=== PATIENT | male | born 1995 | race African-American/Black ===

== ENCOUNTER 2022-04-18 07:45 | Emergency (ER) | payer OTHER ==
--- NOTE | 2022-04-18 08:38 | XRAY Report ---
PROCEDURE: Chest 1 View X-Ray INDICATIONS: cough/fever TECHNIQUE: One view of the chest was acquired. COMPARISON: None. FINDINGS: Surgical changes and devices: None. Lungs and pleura: No pleural effusions or pneumothorax. Subtle increased opacity in right infrahilar region is seen, early infiltrate cannot be excluded. Left lung is clear. Mediastinum: Mediastinal contours appear normal. Heart size is normal. Bones and chest wall: No suspicious bony lesions. Overlying soft tissues appear unremarkable. IMPRESSION: Finding may represent early developing right infrahilar infiltrate versus atelectasis. Cl inical correlation and follow-up is recommended. No pleural effusion or pneumothorax. Reviewed by: Rashid Cook MD on 04/18/2022 8:36 AM PST Approved by: Rashid Cook MD on 04/18/2022 8:36 AM PST Station ID: [id number]
[2022-04-18 09:25] LABS: B. PARAPERTUSSIS- RESP PCR PAN NOT DETECTED; B. PERTUSSIS- RESP PCR PANEL NOT DETECTED; C. PNEUMONIAE- RESP PCR PANEL NOT DETECTED; CORONAVIRUS 229E-RESP PCR NOT DETECTED; CORONAVIRUS HKU1-RESP PCR NOT DETECTED; CORONAVIRUS NL63-RESP PCR DETECTED; CORONAVIRUS OC43-RESP PCR NOT DETECTED; HUMAN METAPNEUMOVIRUS NOT DETECTED; INFLUENZA A- RESP PCR PANEL NOT DETECTED; INFLUENZA B - RESP PCR PANEL NOT DETECTED; M. PNEUMONIAE- RESP PCR PANEL NOT DETECTED; PARAINFLUENZA VIRUS 1 NOT DETECTED; PARAINFLUENZA VIRUS 2 NOT DETECTED; PARAINFLUENZA VIRUS 3 NOT DETECTED; PARAINFLUENZA VIRUS 4 NOT DETECTED; RHINOVIRUS/ENTEROVIRUS NOT DETECTED; RSV- RESP PCR PANEL NOT DETECTED; SARS-CoV-2 -RESP PCR PANEL NOT DETECTED
--- NOTE | 2022-04-18 09:40 | ED Physician Documentation ---
PD HPI URI - Stated complaint Stated Complaint: COUGH/CONGESTION - Chief complaint Chief Complaint: General - History obtained from History obtained from: Patient - Additional information Additional information: Patient is a 27-year-old male with a history of G6PD deficiency presenting for evaluation of low-grade fevers, cough, congestion for 10 days. His and daughter have also been ill with similar symptoms. He has been using ibuprofen but did not take any today without any significant improvement. He was at work today and due to persistent symptoms they recommended that he come get eval uated. He has been tested for COVID and it is negative. Review of Systems Constitutional: reports: Fever Nose: reports: Congestion Cardiac: denies: Chest pain / pressure Respiratory: reports: Cough. denies: Dyspnea GI: denies: Vomiting PD PAST MEDICAL HISTORY - Present Medications Home Medications: Ambulatory Orders Medication Instructions Recorded Confirmed Azithromycin [Zithromax] 1 tab PO DAILY #6 tablet 04/18/22 - Allergies Allergies/Adverse Reactions: Allergies Allergy/AdvReac Type Severity Reaction Status Date / Time G6PD Allergy Unknown Uncoded 04/18/22 08:10 PD ED PE NORMAL - General General: Alert and oriented X 3, No acute distress, Well developed/nourished - HEENT HEENT: Atraumatic, Moist mucous membranes, Pharynx benign - Neck Neck: Supple, no meningeal sign, No bony TTP - Cardiac Cardiac: RRR - Respiratory Respiratory: No respiratory distress, Other (Diminished breath sounds thr oughout; No wheezes) - Derm Derm: Warm and dry - Neuro Neuro: Normal speech Results - Vitals Vitals: Vital Signs - 24 hr 04/18/22 04/18/22 04/18/22 08:00 09:48 09:55 Temperature 36.4 C L 36.5 C Heart Rate 76 68 68 Respiratory 17 16 16 Rate Blood Pressure 120/67 120/82 H 120/82 H O2 Saturation 97 98 98 Oxygen O2 Source Room air - Labs Labs: Laboratory Tests 04/18/22 08:15 Nasal Adenovirus (PCR) NOT DETECTED Nasal B. parapertussis DNA (PCR) NOT DETECTED Nasal Coronavir 229E PCR NOT DETECTED Nasal Coronavir HKU1 PCR NOT DETECTED Nasal Coronavir NL63 PCR DETECTED A Nasal Coronavir OC43 PCR NOT DETECTED Nasal Enterovir/Rhinovir PCR NOT DETECTED Nasal Influenza B PCR NOT DETECTED Nasal Influenza A PCR NOT DETECTED Nasal Parainfluen 1 PCR NOT DETECTED Nasal Parainfluen 2 PCR NOT DETECTED Nasal Parainfluen 3 PCR NOT DETECTED Nasal Parainfluen 4 PCR NOT DETECTED Nasal RSV (PCR) NOT DETECTED Nasal B.pertussis DNA PCR NOT DETECTED Nasal C.pneumoniae (PCR) NOT DETECTED Suhas Human Metapneumo PCR NOT DETECTED Nasal M.pneumoniae (PCR) NOT DETECTED Nasal SARS-CoV-2 (PCR) NOT DETECTED PD Medical Decision Making - ED course Complexity details: reviewed results, re-evaluated patient ED course: Patient presenting for evaluation of URI symptoms for 10 days. His vital signs are stable and he is nonlabored with his breathing. His respiratory swab is positive for non-COVID type of coronavirus. His chest x-ray was also reviewed which shows possible infiltrate. I did also review his x-ray. Due to duration of symptoms I will opt to treat the patient with a course of antibiotics.Do not feel labs would be helpful at this time as the patient is otherwise well- appearing with normal vital signs and does not appear to require hospitalization for treatment. I discussed these findings with the patient he is comfortable with plan for discharge. Departure - Departure Disposition: 01 Home, Self Care Clinical Impression: Community acquired pneumonia Condition: Stable Instructions: ED Pneumonia Adult Prescriptions: Azithromycin [Zithromax] 1 tab PO DAILY #6 tablet Comments: Your respiratory swab is positive for a non-COVID type of coronavirus which is a common cold virus. Your chest x-ray also shows possible early pneumonia. Given that your symptoms have been ongoing I am going to start you on an antibiotic for 5 days and have sent this prescription to the [facility] pharmacy in [place]. If you have any worsening symptoms please consider return to the emergency department. Forms: Activity restrictions Discharge Date/Time: 04/18/22 09:55
[2022-04-18 09:48] VITALS: BP 120/82
== END 2022-04-18 09:55 | disposition home or self-care (01) ==
LOC: EDBD → ED 07:45
DX: B34.2 Coronavirus infection, unspecified (principal); J18.9 Pneumonia, unspecified organism; Z20.822 Contact with and (suspected) exposure to COVID-19
CPT/HCPCS: 87633; 99283; 99284